=== PATIENT | male | born 1980 | race Caucasian/White ===

== ENCOUNTER → 2019-07-01 | Outpatient (CLI) | payer BC ==
--- NOTE | 2019-07-01 10:10 | Diagnostic Imaging Report ---
INDICATION: Abdominal pain and diarrhea Supine images of the abdomen are obtained. Overall bowel gas pattern is unremarkable. There is no evidence of free intraperitoneal gas or pneumatosis. There is mild to moderate amount of stool throughout the colon. Several rounded stones are seen projecting over the upper and lower poles of the left kidney measuring up to 0.4 cm in diameter. No other pathologic abdominal calcification is identified. IMPRESSION: Several small stones are seen in left kidney. Otherwise, no acute abnormality or evidence of bowel obstruction is identified. Dictated by: Dictated on workstation # [id number]
== END ==
LOC: RAD FS 09:22
PROVIDERS: ATTEND Nurse Practitioner
DX: N20.0 Calculus of kidney (principal); R19.7 Diarrhea, unspecified
CPT/HCPCS: 74018